=== PATIENT | female | born 1960 | race Caucasian/White ===

== ENCOUNTER → 2017-10-10 | Outpatient (CLI) | payer OTHER ==
[~2017-10-10] MED LIST: CALCIUM; COUMADIN; ESTRACE1 MG; FLEXERIL PO; IRON PILL; LISINOPRIL; LISINOPRIL10 MG; MACROBID 100 M100 M1 PO; NORCO 5-325 TA1 EACH PO; NORVASC2.5 MG PO; OCUFLOX5 ML OPHTHALMIC; PREDNISOLONE ACE5 ML OPHTHALMIC; ZOCOR20 MG PO; ZPAK PO
== END ==
LOC: M.RAD 10:00
DX: Z12.31 Encounter for screening mammogram for malignant neoplasm of breast (principal)

== ENCOUNTER 2018-05-13 11:44 | Emergency (ER) | payer OTHER ==
[~2018-05-13] VITALS: Ht 167.6 cm; Wt 86.2 kg
[~2018-05-13 11:44] MED LIST changes: -FLEXERIL PO; -NORCO 5-325 TA1 EACH PO; -NORVASC2.5 MG PO; -OCUFLOX5 ML OPHTHALMIC; -PREDNISOLONE ACE5 ML OPHTHALMIC; -ZOCOR20 MG PO; -ZPAK PO
[2018-05-13] MEDS ORDERED: ZOCOR20 MG PO (12:02)
[2018-05-13] MEDS ORDERED: NORVASC2.5 MG PO (12:02)
[2018-05-13] MEDS ORDERED: OCUFLOX5 ML OPHTHALMIC (12:03)
[2018-05-13] MEDS ORDERED: PREDNISOLONE ACE5 ML OPHTHALMIC (12:04)
[2018-05-13 12:18] LABS: ABSOLUTE BASOPHILS 0.1 thou/uL (0.0-0.2); ABSOLUTE MONOCYTES 0.7 thou/uL (0.0-1.2); ABSOLUTE NEUTROPHILS 9.2 thou/uL (1.6-8.1); BASOPHILS 0.4 %; EOSINOPHILS 0.4 %; HEMATOCRIT 42.3 % (37.0-47.0); LYMPHOCYTES 16.6 %; MCH 29.2 pg (26.0-34.0); MCHC 33.1 g/dL (28.0-37.0); MCV 88.1 fL (80.0-100.0); MONOCYTES 5.8 %; MPV 6.8 fl. (7.2-11.1); NUCLEATED RBCS 0 /100WBC; PLATELET COUNT* 381 thou/uL (150-400); POLYS 76.8 %; RDW-CV 13.6 % (10.5-14.5); WBC 11.9 thou/uL (4.0-11.0)
[2018-05-13 12:33] LABS: ANION GAP 7 mmol/L (7-16); BUN 13 mg/dL (7-18); CHLORIDE 102 mmol/L (98-107); CO2 29 mmol/L (21-32); CREATININE 0.7 mg/dL (0.6-1.3); GLUCOSE 99 mg/dL (70-99); POTASSIUM 3.6 mmol/L (3.5-5.1); SODIUM 138 mmol/L (136-145)
[2018-05-13 12:43] LABS: ALBUMIN 3.4 g/dL (3.4-5.0); ALKALINE PHOSPHATASE 100 U/L (46-116); LIPASE 113 U/L (73-393); MAGNESIUM 1.9 mg/dL (1.8-2.4); NT-PRO BRAIN NAT PEPTIDE 46 pg/mL (<300); SGOT 15 U/L (15-37); SGPT 20 U/L (30-65); TOTAL BILIRUBIN 0.3 mg/dL (<0.1-1.0); TROPONIN-I LEVEL <0.06 ng/mL (<0.06)
[2018-05-13] MEDS ORDERED: ZPAK PO (12:52)
[2018-05-13] MEDS ORDERED: FLEXERIL PO (12:53)
[2018-05-13] MEDS ORDERED: NORCO 5-325 TA1 EACH PO (12:53)
[2018-05-13 13:05] VITALS: BP 148/91
--- NOTE | 2018-05-13 15:01 | EKG ---
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: EDGAR : 1960 Requested By: Dax Trammell Order Number: [id number] MD: Juliano Champagne Measurements Intervals Banks Rate: 92 P: 35 NH: 173 QRS: 20 QRSD: 86 T: -3 QT: 360 QTc: 446 Interpretive Statements Sinus rhythm Abnormal R-wave progression, early transition Compared to ECG 10/13/2011 03:57:05 No significant changes Electronically Signed On 05-13-2018 15:01:37 CDT by Juliano Champagne [email or web address] <ELECTRONICALLY SIGNED> By: Juliano Champagne MD, [facility] 05/13/18 1501 1229 1229 Juliano Champagne MD, FACC /EPI
== END 2018-05-13 13:05 | disposition home or self-care (01) ==
LOC: M.ERS 11:44
PROVIDERS: Emergency Medicine Emergency Medical Services
DX: R09.1 Pleurisy (principal); I10 Essential (primary) hypertension; Z88.6 Allergy status to analgesic agent; Z90.710 Acquired absence of both cervix and uterus; Z86.2 Personal history of diseases of the blood and blood-forming organs and certain disorders involving the immune mechanism; Z87.01 Personal history of pneumonia (recurrent)

== ENCOUNTER → 2019-01-31 | Outpatient (CLI) | payer BC ==
[~2019-01-31] MED LIST changes: +FLEXERIL PO; +NORCO 5-325 TA1 EACH PO; +NORVASC2.5 MG PO; +OCUFLOX5 ML OPHTHALMIC; +PREDNISOLONE ACE5 ML OPHTHALMIC; +ZOCOR20 MG PO; +ZPAK PO
== END ==
LOC: M.RAD 13:36
DX: Z12.31 Encounter for screening mammogram for malignant neoplasm of breast (principal)

== ENCOUNTER → 2019-11-28 | Outpatient (CLI) | payer BC | LOC: M.ULTRA 14:34 | DX: M79.604 Pain in right leg (principal); M79.89 Other specified soft tissue disorders; Z86.711 Personal history of pulmonary embolism ==

== ENCOUNTER → 2020-05-14 | Outpatient (CLI) | payer BC | LOC: M.RAD 08:50 | PROVIDERS: ATTEND Family Medicine | DX: Z12.31 Encounter for screening mammogram for malignant neoplasm of breast (principal) ==